=== PATIENT | female | born 1925 | race Caucasian/White ===

== ENCOUNTER 2016-10-13 09:58 | Emergency (ER) | payer MEDICARE ==
[~2016-10-13] VITALS: Ht 165.1 cm; Wt 54.0 kg
[2016-10-13] MEDS ORDERED: AMLODIPINE5 MG PO (10:35)
[2016-10-13] MEDS ORDERED: CILOSTAZOL100 MG PO (10:37)
[2016-10-13] MEDS ORDERED: LOSARTAN POTASS50 MG PO (10:41)
[2016-10-13] MEDS ORDERED: SIMVASTATIN10 MG PO (10:42)
[2016-10-13] MEDS ORDERED: LEVOTHYROXIN75 MC1 PO (10:42)
[2016-10-13] MEDS ORDERED: ADLT ASA LOW81 MG PO (10:44)
[2016-10-13 10:50] LABS: HEMATOCRIT 38.6 % (37.0-47.0); HEMOGLOBIN 12.7 g/dl (12.0-16.0); IMMATURE GRANULOCYTES 0.3 % (0.0-1.0); MEAN CELL VOLUME 95.8 fL CALC (80.0-100.0); MEAN CORPUSCULAR HGB 31.5 pG CALC (26.0-32.0); MEAN CORPUSCULAR HGB CONC 32.9 g/L CALC (32.0-36.0); NEUT# 5.51 thou/uL (2.00-7.15); RED BLOOD COUNT 4.03 mill/uL (4.20-5.60); RED CELL DISTRI WIDTH 12.8 % (11.5-15.5)
[2016-10-13 11:17] LABS: PROTHROMBIN TIME 10.7 SECONDS (9.0-12.5)
[2016-10-13 11:20] LABS: ALBUMIN 3.9 g/dL (3.2-5.0); ALKALINE PHOSPHATASE 56 u/l (38-126); ANION GAP 11 (6-22 (CALC)); BILIRUBIN, TOTAL 0.9 mg/dL (0.0-1.4); BUN 20 mg/dL (8-23); BUN/CREATININE RATIO 21 (12-20 (CALC)); CALCIUM 9.1 mg/dL (8.4-10.2); CARBON DIOXIDE 31 mmol/l (22-30); CHLORIDE 99 mmol/l (95-108); GFR 52 ML/MIN (>=60 (CALC)); GFR FOR AFR.AMER. > 60 ML/MIN (>=60 (CALC)); GLUCOSE 116 mg/dL (82-115); POTASSIUM 4.4 mmol/l (3.5-5.1); SGOT/AST 24 u/l (9-36); SGPT/ALT 32 u/l (11-66); SODIUM 138 mmol/l (137-146)
[2016-10-13 11:34] LABS: MYOGLOBIN 76 ng/mL (0 - 62)
[2016-10-13 15:08] VITALS: BP 139/77
== END 2016-10-13 15:20 | disposition home or self-care (01) ==
LOC: ED 09:58
PROVIDERS: Emergency Medicine
DX: R55 Syncope and collapse (principal); R09.02 Hypoxemia; I71.4 Abdominal aortic aneurysm, without rupture; Z95.828 Presence of other vascular implants and grafts; Z87.891 Personal history of nicotine dependence; R94.31 Abnormal electrocardiogram [ECG] [EKG]